=== PATIENT | female | born 1940 | race Caucasian/White ===

== ENCOUNTER 2016-07-01 14:18 | Outpatient (CLI) | payer OTHER, MEDICARE | END 2016-07-01 14:19 | disposition critical access hospital (66) | DX: S09.93XA Unspecified injury of face, initial encounter (principal); R10.31 Right lower quadrant pain; W01.0XXA Fall on same level from slipping, tripping and stumbling without subsequent striking against object, initial encounter; Z91.81 History of falling | CPT/HCPCS: A0425; A0429 ==

== ENCOUNTER 2016-07-01 14:47 | Emergency (ER) | payer OTHER, MEDICARE ==
[2016-07-01] MEDS ORDERED: LIDOCAINE 1%-EPI 1:100000 20 ML MDV SUBQ STA (14:52)
[2016-07-01] MEDS ORDERED: TETANUS/DIPHTHERIA/PERTUSSIS 0.5 ML SYRINGE IM ONE (14:52)
[2016-07-01] MEDS ORDERED: LIDOCAINE 1%-EPI 1:100000 20 ML MDV ONE (15:31)
[2016-07-01] MEDS ORDERED: TETANUS/DIPHTHERIA TOXOID 0.5 ML SYRINGE IM ONE (15:32)
== END 2016-07-01 17:26 | disposition home or self-care (01) ==
DX: S01.511A Laceration without foreign body of lip, initial encounter (principal); S20.211A Contusion of right front wall of thorax, initial encounter; W01.0XXA Fall on same level from slipping, tripping and stumbling without subsequent striking against object, initial encounter; Y93.89 Activity, other specified; Y92.89 Other specified places as the place of occurrence of the external cause; Y99.0 Civilian activity done for income or pay; Z23 Encounter for immunization; E11.9 Type 2 diabetes mellitus without complications; R03.0 Elevated blood-pressure reading, without diagnosis of hypertension
CPT/HCPCS: 1040M; 12011; 70450; 70486; 71101; 90471; 90714; 99283

== ENCOUNTER 2018-02-11 08:44 | Outpatient (CLI) | payer MEDICARE, OTHER ==
--- NOTE | 2018-02-11 11:39 | DEXA Report ---
Reason: OSTEOPOROSIS SCREENING Procedure Date: 02/11/2018 Accession Number: [id number] / [id number] Procedure: DEX - Dexa Spine and/or Hip CPT Code: FULL RESULT: EXAM: Dexa Spine and/or Hip DATE: 02/11/2018 9:45 AM CLINICAL HISTORY: OSTEOPOROSIS SCREENING TECHNIQUE: Dual energy x-ray absorptiometry (DXA) was performed on a [employer] System. Regions measured are the AP Spine, femoral neck, and if needed forearm. COMPARISON: None. In accordance with the International Society for Clinical Densitometry (ISCD) guidelines, data from previous exams may be reanalyzed using current recommendations and techniques. This is done to allow a more accurate basis for comparison with the current study. FINDINGS: The data for the lumbar spine is as follows: BMD (g/cm/cm) T-SCORE Z-SCORE REGION L1 1.072 -0.5 1.3 L2 1.410 1.7 3.5 L3 1.522 2.7 4.5 L4 1.444 2.0 3.8 TOTAL 1.376 1.6 3.4 NOTE: All evaluable vertebrae are used for classification The data for the hip is as follows: BMD (g/cm/cm) T-SCORE Z-SCORE REGION Neck 0.819 -1.6 0.4 TOTAL 0.784 -1.8 0.0 NOTE: The femoral neck or total proximal femur, whichever is lowest, is used for classification. IMPRESSION: THE WHO CLASSIFICATION BASED ON THE INTERNATIONAL REFERENCE STANDARD IS OSTEOPENIA. THE FRACTURE RISK IS INCREASED. RECOMMENDATION: Patients with diagnosis of osteoporosis or osteopenia should have regular bone mineral density assessment. For those eligible for Medicare, routine testing is allowed once every 2 years. Testing frequency can be increased for patients who have rapidly progressing disease or for those who are receiving medical therapy to restore bone mass. COMMENT: World Health Organization (WHO) definitions for osteoporosis and osteopenia: NORMAL BMD: T-score at -1.0 or higher, fracture risk is low OSTEOPENIA BMD: T-score between -1.0 and -2.5, fracture risk is increased. OSTEOPOROSIS BMD: T-score at -2.5 or lower, fracture risk is high. National Osteoporosis Foundation recommends: 1. Obtain adequate dietary calcium (at least 1200 mg per day) and vitamin D (400-800 international units per day). 2. Participate, as appropriate, in regular weightbearing and muscle-strengthening exercise. 3. Avoid tobacco use and reduce alcohol and caffeine intake. 4. For more detailed information see the website at www.NOF.org.
== END 2018-02-11 08:45 | disposition home or self-care (01) ==
LOC: DI 08:44
PROVIDERS: ATTEND Internal Medicine
DX: Z13.820 Encounter for screening for osteoporosis (principal); M81.0 Age-related osteoporosis without current pathological fracture; M85.89 Other specified disorders of bone density and structure, multiple sites
CPT/HCPCS: 77080

== ENCOUNTER 2020-01-23 10:14 | Outpatient (CLI) | payer MEDICARE, OTHER | END 2020-01-23 10:15 | disposition home or self-care (01) | LOC: COV 10:14 | PROVIDERS: ATTEND Ophthalmology | DX: Z01.818 Encounter for other preprocedural examination (principal); H25.811 Combined forms of age-related cataract, right eye; Z20.828 Contact with and (suspected) exposure to other viral communicable diseases ==

== ENCOUNTER 2020-01-26 08:07 | Day surgery (SDC) | payer MEDICARE, OTHER ==
[~2020-01-26 08:07] MED LIST: KETOROLAC 0.45% OPHTH DROPS ONE; LACTATED RINGERS 500 ML IV ONE; PHENYLEPHRINE 2.5% OPHTH 2 ML DROPS ONE; PROPARACAINE 0.5% OPHTH DROPS 15 ML ONE
--- NOTE | 2020-01-26 08:15 | ANESTHESIA ---
Pre-Anesthesia VS, & Labs - Diagnosis right eye cataract - Procedure right CATIOL Height: 5 ft 4 in Weight (kg): 57.9 kg Body Mass Index: 21.9 BMI Classification: Healthy weight - Is Patient ?: No - Lab Results Lab results reviewed: Yes Home Medications and Allergies FLUoxetine [PROzac] 60 mg PO DAILY 07/01/16 Levothyroxine [Synthroid] 50 mcg PO DAILY 07/01/16 Simvastatin 5 mg PO DAILY 07/01/16 lamoTRIgine [Lamictal] 100 mg PO DAILY 07/01/16 lisinopriL [Lisinopril] 5 mg PO DAILY 07/01/16 Allergies/Adverse Reactions: Allergies Allergy/AdvReac Type Severity Reaction Status Date / Time ampicillin Allergy Unknown Verified 07/01/16 14:54 Anes History & Medical History - Anesthetic History Anesthesia Complications: reports: No previous complications Family history of Anesthesia Complications: Denies Family history of Malignant Hyperthermia: Denies - Medical History Cardiovascular: reports: High cholesterol Pulmonary: reports: None Gastrointestinal: reports: None Urinary: reports: None, Other Musculoskeletal: reports: Other Endocrine/Autoimmune: reports: Type 2 diabetes Skin: reports: None Smoking Status: Never smoker Psychosocial: reports: Other (bipolar) - Surgical History Eyes Ears Nose Throat (EENT): Tonsil/Adenoidectomy Gynecologic: Tubal ligation Orthopedic: Other Exam General: Alert, Oriented x3, Cooperative, No acute distress Dental: WNL Mouth Openin Fingerbreadth Mallampati classification: II Respiratory: Lungs clear, Normal breath sounds, No respiratory distress, No accessory muscle use Cardiovascular: Regular rate, Normal S1, Normal S2, No murmurs Plan Anesthesia Type: MAC Consent for Procedure(s) Verified and Reviewed: Yes Code Status: Attempt Resuscitation ASA classification: 2-Mild systemic disease Is this case an emergency?: No
[2020-01-26] MEDS ORDERED: PHENYLEPHRINE 2.5% OPHTH 2 ML DROPS ONE (08:56)
[2020-01-26] MEDS ORDERED: PROPARACAINE 0.5% OPHTH DROPS 15 ML ONE (08:56)
[2020-01-26] MEDS ORDERED: KETOROLAC 0.45% OPHTH DROPS ONE (08:56)
[2020-01-26] MEDS ORDERED: fentaNYL 100 MCG/2 ML VIAL IVP PRN (09:20)
[2020-01-26] MEDS ORDERED: HYDROmorphone 0.5 MG/0.5 ML SYRINGE IVP PRN (09:20)
[2020-01-26] MEDS ORDERED: MORPHINE 2 MG/ML CARPUJECT IVP PRN (09:20)
[2020-01-26] MEDS ORDERED: NALOXONE 0.4 MG/ML VIAL IVP PRN (09:20)
[2020-01-26] MEDS ORDERED: ATROPINE ABBOJECT 1 MG/10 ML SYRINGE IVP PRN (09:20)
[2020-01-26] MEDS ORDERED: ePHEDrine 50 MG/ML VIAL IVP PRN (09:20)
[2020-01-26] MEDS ORDERED: METOCLOPRAMIDE 10 MG/2 ML VIAL IVP PRN (09:20)
[2020-01-26] MEDS ORDERED: ONDANSETRON 4 MG/2 ML VIAL IVP PRN (09:20)
[2020-01-26] MEDS ORDERED: BRIMONIDINE 0.2% OPHTH DROPS 5 ML OPTH ONE ×2 (09:35→09:47)
[2020-01-26] MEDS ORDERED: EPINEPHrine 1 MG/ML AMP IR ONE ×2 (09:35→09:47)
[2020-01-26] MEDS ORDERED: CHONDR SULF/HYALURONATE SYRINGE IO ONE ×2 (09:36→09:47)
[2020-01-26] MEDS ORDERED: BSS/LIDOCAINE/EPINEPHRINE 1 ML SYRINGE IO ONE ×2 (09:36→09:48)
[2020-01-26] MEDS ORDERED: TIMOLOL 0.5% OPHTH DROPS OPTH ONE ×2 (09:36→09:47)
[2020-01-26] MEDS ORDERED: TRIAMCIN/MOXIFLOX OPHTHALMIC 0.6 ML VIAL IO ONE ×3 (09:37→12:45)
[2020-01-26] MEDS ORDERED: VANCOMYCIN OPHTHALMI 8MG/0.8ML 8 MG/0.8 ML SYRINGE IO ONE ×2 (09:37→12:45)
[2020-01-26] MEDS ORDERED: PROPARACAINE 0.5% OPHTH DROPS 15 ML EACHEYE ONE ×2 (09:37→09:44)
[2020-01-26] MEDS ORDERED: LACTATED RINGERS 1,000 ML IV SCH (10:00)
[2020-01-26] MEDS ORDERED: LACTATED RINGERS 500 ML IV ONE (10:01)
--- NOTE | 2020-01-26 10:12 | ANESTHESIA POST OP EVALUATION ---
Anesthesia Post Eval - Post Anesthesia Eval Vitals: Last Vital Signs Temp 36.2 C L 01/26/20 10:01 Pulse 51 L 01/26/20 10:01 Resp 14 01/26/20 10:01 BP 107/62 01/26/20 10:01 Pulse Ox 94 01/26/20 10:01 CV Function Including HR & BP: positive: Stable Pain Control: positive: Satisfactory Nausea & Vomiting: positive: Negative Mental Status: positive: Baseline Respiratory Status: Airway Patent Hydration Status: Satisfactory Anesthesia Complications: positive: None
[2020-01-26 10:24] VITALS: BP 97/59
[2020-01-26] MEDS ORDERED: TIMOLOL 0.5% OPHTH DROPS ONE (12:44)
[2020-01-26] MEDS ORDERED: BRIMONIDINE 0.2% OPHTH DROPS 5 ML ONE (12:44)
[2020-01-26] MEDS ORDERED: BSS/LIDOCAINE/EPINEPHRINE 1 ML SYRINGE ONE (12:45)
--- NOTE | 2020-01-26 19:28 | PROCEDURE REPORT ---
DATE OF SERVICE: 01/26/2020 Physician: Krzysztof Chang MD DATE OF PROCEDURE 01/26/2020. PREOPERATIVE DIAGNOSIS Visually significant cataract, right eye; this was her first cataract surgery. POSTOPERATIVE DIAGNOSIS Visually significant cataract, right eye; this was her first cataract surgery. PROCEDURE PERFORMED Phacoemulsification with posterior chamber intraocular lens implant, right eye. SURGEON Krzysztof Chang MD ANESTHESIA Monitored anesthesia care. COMPLICATIONS None. OPERATIVE INDICATIONS This is a 79-year-old woman with progressive vision loss in the right eye due to 2+ nuclear sclerotic, 3+ cortical and trace posterior subcapsular cataract. Best corrected visual acuity was 20/25, with glare to 20/80 in the right eye. Indications for surgery were overall decrease in vision, difficulty seeing street signs and difficulty driving at night because of headlights. She was consented at length concerning risks and benefits of cataract surgery, after which she expressed a desire to proceed with surgery. OPERATIVE PROCEDURE The patient was taken to OR #3 and placed under monitored anesthesia care. A surgical timeout was conducted confirming correct patient, correct procedure, and correct surgical site. She was given topical anesthesia, and prepped and draped in the usual sterile fashion. The eye was entered at the 12 and 9 o'clock positions. Intracameral Shugarcaine was injected into the anterior chamber, followed by Viscoat. A continuous-tear curvilinear capsulorrhexis was performed. The nucleus was hydrodissected and phacoemulsified. The cortex was evacuated using automated infusion and aspiration. Provisc was injected in the capsular bag, and a 17.0 diopter intraocular lens was inserted into the bag. This lens was a multifocal, toric IOL, and the IOL was rotated to the planned axis of 085 (previously marked on the cornea in the PACU). Infusion and aspiration was used to evacuate the viscoelastic materials. The eye was inflated to physiologic pressure using balanced salt solution and found to be watertight. Approximately 0.25 mL of a mixture of triamcinolone and moxifloxacin was injected transsclerally in the vitreous in the inferotemporal quadrant. An additional 0.55 mL of a mixture of triamcinolone, moxifloxacin and vancomycin was injected subconjunctivally in the superior quadrant for infection and inflammation prophylaxis. The IOL was again verified to be at the proper axis of 085. Wound integrity was checked with Weck-Carleen sponges. Patient was taken from the Operating Room in good condition and given postoperative instructions. TD: 01/26/2020 10:08 ESTEVAN
== END 2020-01-26 08:08 | disposition home or self-care (01) ==
LOC: SDS 08:07
PROVIDERS: ATTEND Ophthalmology
DX: E11.36 Type 2 diabetes mellitus with diabetic cataract (principal); H25.811 Combined forms of age-related cataract, right eye; E03.9 Hypothyroidism, unspecified
CPT/HCPCS: 66984; A9270; J3490; J7120; V2632

== ENCOUNTER 2020-03-05 07:00 | Outpatient (CLI) | payer MEDICARE, OTHER | END 2020-03-05 23:59 | disposition home or self-care (01) | LOC: LAB.R 07:00 | PROVIDERS: ATTEND Ophthalmology | DX: Z01.818 Encounter for other preprocedural examination (principal); H25.812 Combined forms of age-related cataract, left eye; Z20.828 Contact with and (suspected) exposure to other viral communicable diseases ==

== ENCOUNTER 2020-03-08 09:51 | Day surgery (SDC) | payer MEDICARE, OTHER ==
[~2020-03-08 09:51] MED LIST changes: -LACTATED RINGERS 500 ML IV ONE
[2020-03-08] MEDS ORDERED: LACTATED RINGERS 500 ML IV ONE ×2 (10:07→11:48)
[2020-03-08] MEDS ORDERED: CYCLOPENTOLATE 2% OPHTH DROPS 2 ML LEFTEYE ONE (10:11)
--- NOTE | 2020-03-08 10:52 | ANESTHESIA ---
Pre-Anesthesia VS, & Labs - Diagnosis L senile combined cataract - Procedure L extraction cataract w/IOL Vital Signs: Temp Pulse Resp BP Pulse Ox 36.1 C L 76 12 111/73 95 03/08/20 10:12 03/08/20 10:12 03/08/20 10:12 03/08/20 10:12 03/08/20 10:12 Height: 5 ft 4 in Weight (kg): 59 kg Body Mass Index: 22.3 BMI Classification: Healthy weight - NPO >8 hours - Is Patient ?: No - Lab Results Lab results reviewed: Yes Home Medications and Allergies FLUoxetine [PROzac] 60 mg PO DAILY 07/01/16 Levothyroxine [Synthroid] 50 mcg PO DAILY 07/01/16 Simvastatin 5 mg PO DAILY 07/01/16 lamoTRIgine [Lamictal] 100 mg PO DAILY 07/01/16 lisinopriL [Lisinopril] 5 mg PO DAILY 07/01/16 Allergies/Adverse Reactions: Allergies Allergy/AdvReac Type Severity Reaction Status Date / Time ampicillin Allergy Intermediate Rash Verified 03/08/20 10:30 Anes History & Medical History - Anesthetic History Anesthesia Complications: reports: No previous complications Family history of Anesthesia Complications: Denies Family history of Malignant Hyperthermia: Denies - Medical History Cardiovascular: reports: High cholesterol Pulmonary: reports: None Gastrointestinal: reports: None Urinary: reports: None, Other Musculoskeletal: reports: Other Endocrine/Autoimmune: reports: Type 2 diabetes Skin: reports: None Smoking Status: Never smoker - Surgical History General: Colonoscopy Eyes Ears Nose Throat (EENT): Cataracts, Tonsil/Adenoidectomy Gynecologic: Tubal ligation Orthopedic: Other Exam General: Alert, Oriented x3, Cooperative Dental: Dentures full Upper, Dentures full Lower Mouth Openin Fingerbreadth Neck Mobility: Normal Mallampati classification: II Thyromental Distance: 4-6 cm Respiratory: Lungs clear, Normal breath sounds, No respiratory distress Cardiovascular: Regular rate Neurological: Normal speech Mental/Cognitive Status: Alert/Oriented X3, Normal for patient Cognitive Status: Within normal limits Plan Anesthesia Type: MAC Consent for Procedure(s) Verified and Reviewed: Yes Code Status: Attempt Resuscitation ASA classification: 2-Mild systemic disease Is this case an emergency?: No
[2020-03-08] MEDS ORDERED: VANCOMYCIN OPHTHALMI 8MG/0.8ML 8 MG/0.8 ML SYRINGE IO ONE ×2 (11:15→11:31)
[2020-03-08] MEDS ORDERED: TIMOLOL 0.5% OPHTH DROPS ONE (11:15)
[2020-03-08] MEDS ORDERED: BRIMONIDINE 0.2% OPHTH DROPS 5 ML ONE (11:15)
[2020-03-08] MEDS ORDERED: EPINEPHrine 1 MG/ML AMP ONE (11:15)
[2020-03-08] MEDS ORDERED: BSS/LIDOCAINE/EPINEPHRINE 1 ML SYRINGE ONE (11:15)
[2020-03-08] MEDS ORDERED: TRIAMCIN/MOXIFLOX OPHTHALMIC 0.6 ML VIAL IO ONE ×2 (11:15→11:30)
[2020-03-08] MEDS ORDERED: MIDAZOLAM 2 MG/2 ML VIAL IVP ONE (11:23)
[2020-03-08] MEDS ORDERED: TIMOLOL 0.5% OPHTH DROPS OPTH ONE (11:30)
[2020-03-08] MEDS ORDERED: CHONDR SULF/HYALURONATE SYRINGE IO ONE (11:30)
[2020-03-08] MEDS ORDERED: EPINEPHrine 1 MG/ML AMP IR ONE (11:30)
[2020-03-08] MEDS ORDERED: BSS/LIDOCAINE/EPINEPHRINE 1 ML SYRINGE IO ONE (11:30)
[2020-03-08] MEDS ORDERED: BRIMONIDINE 0.2% OPHTH DROPS 5 ML OPTH ONE (11:30)
[2020-03-08] MEDS ORDERED: PROPARACAINE 0.5% OPHTH DROPS 15 ML EACHEYE ONE (11:31)
[2020-03-08 12:05] VITALS: BP 03/65
--- NOTE | 2020-03-08 12:49 | OPERATIVE REPORT ---
DATE OF SERVICE: 03/08/2020 Physician: Krzysztof Chang MD PREOPERATIVE DIAGNOSIS: Visually significant cataract, left eye. Cataract surgery was performed on the right eye on 01/26/2020. POSTOPERATIVE DIAGNOSIS: Visually significant cataract, left eye. Cataract surgery was performed on the right eye on 01/26/2020. PROCEDURE: Phacoemulsification with posterior chamber intraocular lens implant, left eye. SURGEON: Krzysztof Chang MD ANESTHESIA: Monitored anesthesia care. COMPLICATIONS: None. OPERATIVE INDICATIONS: This is a 79-year-old woman with progressive vision loss in the left eye due to 2+ nuclear sclerotic, 3+ cortical and trace posterior subcapsular cataract. Best corrected visual acuity was 20/25, with glare to 20/80 in the left eye. Indications for surgery are overall decrease in vision, difficulty seeing words on a computer screen, difficulty seeing words, closed caption or game scores on TV, difficulty seeing street signs, difficulty driving in low light or at night, difficulty driving at night because of headlights from other vehicles. She was consented at length concerning risks and benefits of cataract surgery, after which she expressed a desire to proceed with surgery. OPERATIVE PROCEDURE: The patient was taken to OR #3 and placed under monitored anesthesia care. A surgical timeout was conducted confirming correct patient, correct procedure, and correct surgical site. Prior to entering the operating room, her cornea was marked for a toric intraocular lens for axis 085. She was given topical anesthesia and prepped and draped in the usual sterile fashion. The eye was entered at the 6 and 3 o'clock positions. Intracameral Shugarcaine was injected into the anterior chamber, followed by Viscoat. A continuous-tear curvilinear capsulorrhexis was performed. The nucleus was hydrodissected and phacoemulsified. Cortex was evacuated using automated infusion and aspiration. Provisc was injected in the capsular bag, and a 15.0 diopter toric intraocular lens was inserted into the bag and rotated to axis 085 as previously marked. Infusion and aspiration was used to evacuate the viscoelastic materials. The eye was inflated to physiologic pressure using balanced salt solution and found to be watertight. The axis of the IOL was again verified to be 085. Approximately 0.25 mL of a mixture of triamcinolone and moxifloxacin was injected transsclerally into the vitreous in the inferotemporal quadrant. An additional 0.55 mL of a mixture of triamcinolone, moxifloxacin, and vancomycin was injected subconjunctivally in the superior quadrant for infection and inflammation prophylaxis. Wound integrity was checked with Weck-Carleen sponges. The axis of the eye was verified once again to be 085; it had not moved. The patient was taken from the operating room in good condition and given postoperative instructions. TD: 03/08/2020 11:55 [facility]
--- NOTE | 2020-03-08 13:33 | ANESTHESIA POST OP EVALUATION ---
Anesthesia Post Eval - Post Anesthesia Eval Vitals: Last Vital Signs Temp 36.6 C 03/08/20 11:45 Pulse 69 03/08/20 12:03 Resp 4 L 03/08/20 12:03 BP 03/65 L 03/08/20 12:03 Pulse Ox 95 03/08/20 12:03 CV Function Including HR & BP: positive: Stable Pain Control: positive: Satisfactory Nausea & Vomiting: positive: Negative Mental Status: positive: Baseline Respiratory Status: Airway Patent Hydration Status: Satisfactory Anesthesia Complications: positive: None
== END 2020-03-08 09:52 | disposition home or self-care (01) ==
LOC: SDS 09:51
PROVIDERS: ATTEND Ophthalmology
DX: E11.36 Type 2 diabetes mellitus with diabetic cataract (principal); H25.812 Combined forms of age-related cataract, left eye; E03.9 Hypothyroidism, unspecified; Z98.41 Cataract extraction status, right eye; Z87.891 Personal history of nicotine dependence
CPT/HCPCS: 66984; A9270; J3490; J7120; V2632

== ENCOUNTER 2021-05-07 12:49 | Outpatient (CLI) | payer MEDICARE, OTHER ==
--- NOTE | 2021-05-07 16:24 | XRAY Report ---
PROCEDURE: Shoulder 3 View LT INDICATIONS: BICIPITAL TENDINITIS TECHNIQUE: 3 views of the shoulder were acquired. COMPARISON: None. FINDINGS: Bones: No fractures or dislocations. No suspicious bony lesions. Visualized ribs appear intact. M oderate left acromioclavicular degenerative narrowing. Soft tissues: No suspicious soft tissue calcifications. IMPRESSION: Acromioclavicular degenerative narrowing. Reviewed by: Tash Mac MD on 05/07/2021 4:23 PM [facility] Approved by: Tash Mac MD on 05/07/2021 4:23 PM [facility] Station ID: [id number]
== END 2021-05-07 23:59 | disposition home or self-care (01) ==
LOC: DI.S 12:49
PROVIDERS: ATTEND Emergency Medicine
DX: M75.22 Bicipital tendinitis, left shoulder (principal); M19.012 Primary osteoarthritis, left shoulder

== ENCOUNTER 2021-06-27 08:00 | Outpatient (CLI) | payer MEDICARE, OTHER ==
--- NOTE | 2021-06-27 12:14 | XRAY Report ---
PROCEDURE: Left toe x-ray INDICATIONS: Trauma, pain TECHNIQUE: 4 views of the left fifth toe(s) acquired. COMPARISON: None FINDINGS: Bones: Transverse fracture through the fifth proximal phalanx noted without significant displacement. Normal bone mineralization present. Soft tissues: No suspicious soft tissue densities. IMPRESSION: Fifth proximal phalangeal fracture, nondisplaced Reviewed by: Akil Pickens MD on 06/27/2021 11:13 AM [facility] Approved by: Akil Pickens MD on 06/27/2021 11:13 AM [facility] Station ID: [id number]
== END 2021-06-27 23:59 | disposition home or self-care (01) ==
LOC: DI.S 08:00
PROVIDERS: ATTEND Physician Assistant Medical
DX: S92.512A Displaced fracture of proximal phalanx of left lesser toe(s), initial encounter for closed fracture (principal)
CPT/HCPCS: 73660

== ENCOUNTER 2022-09-02 07:00 | Outpatient (CLI) | payer MEDICARE, OTHER ==
--- NOTE | 2022-09-02 14:28 | XRAY Report ---
PROCEDURE: Ribs w/PA Chest RT INDICATIONS: STRAIN OF FRONT WALL OF THORAX TECHNIQUE: 3 views of the right ribs were acquired, along with a single view chest. COMPARISON: Chest x-ray 07/01/2016 FINDINGS: Surgical changes and devices: None. Bones and chest wall: No fractures or dislocations. No suspicious bony lesions. Overlying soft tis sues appear unremarkable. Lungs and pleura: No pleural effusions or pneumothorax. Lungs appear clear. Mediastinum: Mediastinal contours appear normal. Heart size is normal. IMPRESSION: No visualized acute fracture or dislocation. However, occult injury cannot be excluded. Recommend rosalie rt interval imaging follow-up in 7-10 days as clinically indicated for additional evaluation. Reviewed by: Tash Mac MD on 09/02/2022 2:26 PM PDT Approved by: Tash Mac MD on 09/02/2022 2:26 PM PDT Station ID: [id number]
== END 2022-09-02 23:59 | disposition home or self-care (01) ==
LOC: DI.S 07:00
PROVIDERS: ATTEND Emergency Medicine
DX: S29.011A Strain of muscle and tendon of front wall of thorax, initial encounter (principal)

== ENCOUNTER 2023-12-25 08:00 | Outpatient (CLI) | payer MEDICARE, OTHER ==
--- NOTE | 2023-12-25 14:50 | XRAY Report ---
PROCEDURE: Knee 3V LT INDICATIONS: LEFT KNEE PAIN TECHNIQUE: 3 views of the knee(s) were acquired. COMPARISON: None. FINDINGS: Bones: No fractures or dislocations. Mild to moderate tricompartment osteoarthritis is seen more no tably in lateral femoral tibial compartment. No significant patellar subluxation. No suspicious bony lesions. Soft tissues: Moderate suprapatellar joint effusion. No suspicious soft tissue calcifications or mass es. IMPRESSION: No acute bony abnormality. 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 Moderate suprapatellar joint effusion. Reviewed by: Carl Durant MD on 12/25/2023 2:49 PM PDT Approved by: Carl Durant MD on 12/25/2023 2:49 PM PDT Station ID: [id number]
== END 2023-12-25 23:59 | disposition home or self-care (01) ==
LOC: DI.S 08:00
PROVIDERS: ATTEND Emergency Medicine
DX: M17.12 Unilateral primary osteoarthritis, left knee (principal); M25.462 Effusion, left knee